=== PATIENT | female | born 1995 | race Caucasian/White ===

== ENCOUNTER 2023-09-24 12:50 | Outpatient (CLI) | payer OTHER, SELFPAY ==
--- NOTE | 2023-09-24 13:00 | CRLHL7_ITS ---
For Patients: As a result of the Cures Act, medical imaging exams and procedure reports are released immediately into your electronic medical record. You may view this report before your referring provider. If you have questions, please contact your health care provider. INDICATION: First trimester scan, establish dates. COMPARISON: None. TECHNIQUE: Real-time strong-scale imaging of the pelvis was performed. FINDINGS: Sonographic imaging demonstrates a single living intrauterine gestation. The embryo demonstrates a regular cardiac rate measuring 173 beats per minute. The embryo`s crown-rump length measurement of 2.9 cm corresponds to a gestational age of 9 weeks 5 days with a sonographic due date of 04/23/2024. There is a normal-appearing yolk sac. There are no gross abnormalities noted within the embryo at this early state of development. The gestational sac has a normal appearance. There is no evidence of a perigestational hemorrhage. The amount of fluid within the sac appears appropriate for gestational age. The cervix is closed. The myometrium appears normal. Left ovarian cyst is present measuring 2.6 x 2.1 x 2.0 cm. Right ovary normal. There are no suspicious fluid collections noted in the cul-de-sac. IMPRESSION: Normal first trimester OB ultrasound exam. Gestational age calculated at 9 weeks 5 days with a sonographic due date of 04/23/2023. Dictated by Rc Carlton MD @ 09/24/2023 1:52:45 PM (Electronically Signed)
== END 2023-09-24 12:51 | disposition home or self-care (01) ==
LOC: US 12:53
PROVIDERS: Visit Provider Registered Nurse
DX: Z34.90 Encounter for supervision of normal pregnancy, unspecified, unspecified trimester (principal)
CPT/HCPCS: 76817; 86592; 86703; 86704; 86706; 86762; 86787; 86803; 86850; 86900; 86901; 87086; 87340; 87491; 87591

== ENCOUNTER 2023-12-13 11:52 | Outpatient (CLI) | payer OTHER, SELFPAY ==
--- NOTE | 2023-12-13 12:00 | US_ITS ---
Final Report Patient: ANAIS WATERS Facility:?[facility] Patient ID:?[id number] Site Patient ID:?[id number]. Site :?[id number] Study:?US OB Pelvis anatomy-12/13/2023 1:04:27 PM Ordering Physician:POPPY Final Report: INDICATION: Evaluate anatomy. COMPARISON: 09/24/2023 TECHNIQUE: Real time strong scale imaging of the fetus was performed as well as color Doppler analysis of the umbilical vessels. FINDINGS: Sonographic imaging demonstrates a single living intrauterine gestation. Fetus demonstrates a regular cardiac rate of 147 beats per minute. Fetus has a earlene breech position. The placenta lies anteriorly without evidence of placenta previa. Placental edge is 3.9 cm from the internal cervical os. Amniotic fluid volume appears normal. Single deepest vertical pocket: 6.3 cm. The cervix is closed and measures 3.8 cm in length. The composite ultrasound gestational age is calculated at 21 weeks 2 days with an estimated sonographic due date of 04/22/2024. The estimated weight is 407 grams which lies at the 40th %. The following biometric measurements were obtained: Biparietal diameter: 5.0 cm/21 weeks 0 day 38% Head circumference: 18.8 cm/21 weeks 0 days 31st% Abdominal circumference: 16.8 cm/21 weeks 6 days 60th% Femur length: 3.4 cm/20 weeks 4 day 18th% The HC/AC ratio measures: 1.12 range (1.06-1.24) On anatomic survey, there is a normal appearance of the cerebral ventricles, cavum septi pellucidi, cisterna magna and cerebellum. The nose, lips, and facial profile appear normal. The cervical, thoracic and lumbar spine are well visualized and appear normal. There is a normal four-chamber heart view and the left and right ventricular outflow tracts appear normal. The diaphragm and stomach appear normal. The kidneys and bladder also appear normal. There is a normal three-vessel cord and cord insertion site. The four extremities appear normal. IMPRESSION: Normal OB ultrasound exam with concordance of clinical and sonographic dating. No intrinsic abnormalities noted on anatomic survey. Dictated by Rc Carlton MD @ 12/14/2023 7:22:47 AM (Electronic Signature)
== END 2023-12-13 11:53 | disposition home or self-care (01) ==
LOC: US 11:53
PROVIDERS: Visit Provider Obstetrics & Gynecology
DX: Z34.92 Encounter for supervision of normal pregnancy, unspecified, second trimester (principal); Z3A.21 21 weeks gestation of pregnancy
CPT/HCPCS: 76805

== ENCOUNTER 2024-02-01 14:50 | Outpatient (CLI) | payer OTHER, SELFPAY | END 2024-02-01 14:51 | disposition home or self-care (01) | LOC: NFLDREF 02-04 08:30 | PROVIDERS: Visit Provider Obstetrics & Gynecology | DX: Z34.93 Encounter for supervision of normal pregnancy, unspecified, third trimester (principal) | CPT/HCPCS: 86592 ==

== ENCOUNTER 2024-03-28 15:49 | Outpatient (CLI) | payer OTHER, SELFPAY ==
[2024-03-29 15:43] LABS: Strep B DNA Probe Negative (Negative)
[2024-03-30 13:46] LABS: Strep B Susceptibility Needed? No
== END 2024-03-28 15:50 | disposition home or self-care (01) ==
LOC: NFLDREF 15:50
PROVIDERS: Visit Provider Obstetrics & Gynecology
DX: Z34.83 Encounter for supervision of other normal pregnancy, third trimester (principal)
CPT/HCPCS: 87081; 87653

== ENCOUNTER 2024-04-27 07:56 | Outpatient (CLI) | payer OTHER, SELFPAY ==
--- NOTE | 2024-04-27 08:00 | CRLHL7_ITS ---
For Patients: As a result of the Century Cures Act, medical imaging exams and procedure reports are released immediately into your electronic medical record. You may view this report before your referring provider. If you have questions, please contact your health care provider. INDICATION: Post dates COMPARISON: 12/13/2023 TECHNIQUE: Real time strong scale imaging of the fetus. Without non-stress testing. FINDINGS: Sonographic imaging demonstrates a single living intrauterine gestation. Fetus demonstrates a regular cardiac rate of 131 beats per minute. Fetus has a vertex position. The amniotic fluid volume appears normal and there is a single deepest pocket measurement of 2.9 cm. The fetus was not active and demonstrated normal breathing movements. There was normal flexion and extension of the trunk and extremities. IMPRESSION: Biophysical profile 03/18. Absent gross body movements. Dictated by Rc Carlton MD @ 04/27/2024 9:51:47 AM (Electronically Signed)
== END 2024-04-27 07:57 | disposition home or self-care (01) ==
LOC: US 07:57
PROVIDERS: Visit Provider Obstetrics & Gynecology
DX: O48.0 Post-term pregnancy (principal)
CPT/HCPCS: 76819

== ENCOUNTER 2024-04-27 11:06 | Inpatient (IN) | payer OTHER, SELFPAY ==
[2024-04-27] VITALS (36 sets, daily range): BP systolic 101–140; BP diastolic 53–83; PULSE 93–155; RESP 16; TEMP 36.6–37.4; O2SAT 98–100; BMI 30.1
--- NOTE | 2024-04-27 12:06 | W.PM.LDBA ---
Subjective History of Present Illness Time Seen by Provider: 12:06 Narrative: Minerva is being admitted to Labor and Delivery for of labor due to biophysical profile of 6/8, 2 off for lack of movement. She is a 28 year old at 40 and 5/7 weeks gestation. Her full history and physical was dictated by Dr. Manriquez on 04/04/2024. Please see this for details. Biophysical profile was done for postdates testing. Specific Issues/Plans Spouse: Augusto. Baby: Girl! H&P done 04/04/[address] Manriquez. [id number] completed 10/12/2023 (Results given to patient) It's a girl! 1. Varicella non immune. Rec. PP vaccine. Flu: Recommended. Declines. Covid: Completed, not boosted. Recommended. Declines. Tdap: 02/27 OB - Problem Based A/P Additional Plan (1) Encounter for induction of labor: Status: Acute Plan 1. Pitocin per induction protocol. 2. Patient is planning an epidural for labor analgesia. 3. GBS: Negative. 4. Blood type: B positive OB Exam Physical Exam Vital signs: Pulse BP 117 H 125/83 04/27/24 11:26 04/27/24 11:26 Narrative: GENERAL APPEARANCE: Pleasant, , well-groomed woman in no acute distress. VITAL SIGNS: as noted in nursing notes HEAD: Normocephalic, atraumatic. THYROID: no masses, nodularity, tenderness or enlargement. LUNGS: Clear to auscultation bilaterally without wheezes, rales or rhonchi. HEART: Regular rate and rhythm with normal S1 and S2. No gallop, rub or murmur. ABDOMEN: Gravid. Soft, nontender, nondistended, with normal bowels sounds throughout. EFM: Baseline: 130s, moderate variability. Accelerations: Present. Decelerations: Absent. Reactive, category 1 TOCO: 1-2 contractions/30 minutes. PRESENTATION: Vertex by Scott's maneuvers. SVE: 3 cm/ 75 %/ -1/soft/mid. Gil score: 8 EXTREMITIES: No cyanosis, clubbing, or edema. No varicosities. NEUROLOGIC: Normal gait and balance. Normal deep tendon reflexes at bilateral patella 2+/2, equal without clonus. PSYCHIATRIC: alert and oriented x3. Normal speech pattern, eye contact and affect. SKIN: Warm, dry, and well perfused. Good turgor. No lesions, nodules or rashes.
[2024-04-27 13:18] LABS: Basophils Percent Auto 0.2 % (0.0-3.0); Eosinophils Percent Auto 0.9 % (0.0-7.0); Hematocrit 34.8 % (33.0-51.0); Hemoglobin* 12.5 gm/dL (12.0-16.0); Immature Granulocytes Pct Auto 0.7 %; Lymphocytes Percent Auto 13.4 % (20-44); Mean Corpuscular HGB Conc 36 gm/dL (32-36); Mean Corpuscular Hemoglobin 32 pg (26-34); Mean Corpuscular Volume 90 fL (80-100); Monocytes Percent Auto 5.6 % (0.0-11.0); Neutrophils Percent Auto 79.2 % (42.0-72.0); Platelet Count* 140 K/uL (140-440); RDW Coefficient of Variation % 11.9 % (11.5-15.5); Red Blood Count 3.88 m/uL (4.00-5.20); White Blood Count* 14.83 K/uL (4.50-11.00)
[2024-04-27] MEDS: OXYTOCIN 30 unit/500 ML in NS 30 UNIT/500 ML BAG IVPB (13:29)
[2024-04-27] MEDS: LACTATED RINGERS 1000 ML 1,000 ML 125 ML IV (13:31)
[2024-04-27 13:37] LABS: Slide Review Reflex No
--- NOTE | 2024-04-27 16:02 | P.OBPN_ITS ---
Subjective Date Seen: 04/27/24 Narrative: Subjective: The patient is feeling contractions but feels they are manageable. Pitocin: 6 milliunits/minute. Verbal consent obtained for artificial rupture of membranes Vital signs: Per electronic medical record. EFM: Baseline 130s, positive accelerations, negative decelerations, moderate variability, reactive. Category 1. [place]: Contractions every 2 minutes. SVE: 4 cm/75 %/0. AROM: Clear fluid. Assessment: 28-year-old 1 para 0 at 40 weeks 5 days gestation undergoing induction of labor for no movement identified in a biophysical profile earlier today. Plan: 1. Continue Pitocin for labor induction protocol. 2. Considering epidural for labor analgesia. 3. Expect vaginal delivery. Objective Vital Signs: Last Vital Signs Temp 98.4 F 04/27/24 11:26 Pulse 93 04/27/24 14:25 Resp 16 04/27/24 11:26 BP 125/79 04/27/24 14:25
[2024-04-27] MEDS: LIDOCAINE 2% (PF) 5 ML VIAL EPIDURAL (17:57)
[2024-04-27] MEDS: ROPIVACAINE 0.2% 100 ml 100 ML 12 MG EPIDURAL (17:58)
--- NOTE | 2024-04-27 18:03 | PM.ANBPRC ---
[facility] Social History What is your current living situation?: I presently have a place to live Problems where you live: declined to answer In the past 12 months, utilities in danger of being shut off: no In past 12 months, lack of transportation kept you from medical appts, meetings, work, or getting things needed for daily living: no In the past 12 mos, have been you worried that your food would run out before you had money to buy more?: never true In the past 12 mos, the food you bought just didn't last and you didn't have money to buy more?: never true Smoking Status: Never smoker How often does anyone, including family, friends and others, physically hurt you: never How often does anyone, including family, friends and others, insult or talk down to you: never How often does anyone, including family, friends and others, threaten you with harm: never How often does anyone, including family, friends and others, scream or curse at you: never Little interest or pleasure in doing things: not at all Feeling down, depressed, or hopeless: not at all Meds Home Medications and Allergies Home Medications ?Medication ?Instructions ?Recorded ?Confirmed ?Type 103-folic acid 400 1 tab PO DAILY 09/24/23 04/27/24 History mcg-omeg3 32.5 mg-dha-fish oil chew tablet ( with DHA and Folic Acid) cetirizine 10 mg capsule (Zyrtec) 10 mg PO QDAY PRN 02/01/24 04/27/24 History Allergies Allergy/AdvReac Type Severity Reaction Status Date / Time No Known Drug Allergies Allergy Verified 04/27/24 11:55 Results Labs Labs: Laboratory Results - last 24 hr 04/27/24 13:05 WBC 14.83 H RBC 3.88 L Hgb 12.5 Hct 34.8 MCV 90 MCH 32 MCHC 36 RDW Coeff of Mackenzie 11.9 Plt Count 140 Neut % (Auto) 79.2 H Lymph % (Auto) 13.4 L [place] % (Auto) 5.6 Eos % (Auto) 0.9 Baso % (Auto) 0.2 Neut # (Auto) 11.70 H Lymph # (Auto) 2.00 [place] # (Auto) 0.80 Eos # (Auto) 0.10 Baso # (Auto) 0.00 Abs Immat Gran (auto) 0.10 Imm/Tot Granulo (auto) 0.7 Blood Type B Positive Antibody Screen NEGATIVE Vital Signs Vital Signs: Last Vital Signs Temp 98.4 F 04/27/24 11:26 Pulse 98 04/27/24 18:01 Resp 16 04/27/24 11:26 BP 121/62 04/27/24 18:01 Pulse Ox 99 04/27/24 17:57 Weight: 79.651 kg Height: 162.56 cm Anesthesia Procedures Epidural Insertion Patient Location: OB Start Time: 17:30 Stop Time: 18:15 Start Date: 04/27/24 Stop Date: 04/27/24 Reason for Block: primary anesthetic Patient Position: sitting Performed By: Garry Blair Preanesthetic Checklist: IV checked, risks and benefits discussed, surgical consent, monitors and equipment checked, pre-op evaluation, timeout performed and anesthesia consent Prep: chlorhexidine gluconate Monitoring: blood pressure monitoring, compliance monitor, continuous pulse oximetry and heart rate Approach: midline Vertebral Space: lumbar (1-5) Needle Type: Tuohy needle Injection Technique: continuous catheter (catheter) Needle gauge: 17 Needle Length (cm): 10 cm Needle Insertion Depth (cm): 4 Catheter Gauge: 19 Catheter Type: multi-orifice Catheter at skin depth (cm): 9 Test Dose Result: negative and lidocaine 1.5% with epinephrine 1 to 200,000
[2024-04-27] MEDS: LACTATED RINGERS 1000 ML 1,000 ML 999 ML IV (18:25)
--- NOTE | 2024-04-27 18:54 | PM.OBPNL ---
Subjective Time Seen by Provider: 18:45 Date Seen: 04/27/24 Narrative: Subjective: Patient is comfortable w/ epidural. Pitocin: 6 milliunits/minute. Vital signs: Per electronic medical record. EFM: Baseline 130s, positive accelerations, negative decelerations, moderate variability, reactive. Category 1. [place]: Contractions every 2 minutes. SVE: 7 cm/100 %/0. Assessment: 28-year-old 1 para 0 at 40 weeks 5 days gestation undergoing induction of labor Plan: 1. Continue Pitocin per labor induction protocol. 2. Expect vaginal delivery. Objective Vital Signs: Last Vital Signs Temp 98.4 F 04/27/24 11:26 Pulse 103 H 04/27/24 18:43 Resp 16 04/27/24 11:26 BP 136/70 04/27/24 18:43 Pulse Ox 99 04/27/24 17:57
[2024-04-28] VITALS (15 sets, daily range): BP systolic 98–131; BP diastolic 56–79; PULSE 86–129; RESP 16; TEMP 36.8–37.4; O2SAT 99
[2024-04-28] MEDS: OXYTOCIN 30 unit/500 ML in NS 30 UNIT/500 ML BAG 309 UNIT IVPB
[2024-04-28] MEDS: LIDOCAINE 1 % PF 30 ML INJECTION (00:20)
--- NOTE | 2024-04-28 00:41 | W.PM.VAGDEL1 ---
Procedure Delivery date: 04/27/24 Procedure Done: Global Procedure Details: Minerva is a 28 year-old G 1 P 0 now 1 admitted on 04/27/2024 at 11:00 a.m. at 40 Weeks, 5 Days gestation for induction of labor. AROM occurred at 4:00 p.m. on 01/27/2024 with clear fluid. Labor Analgesia: Epidural Pitocin: Yes Labor onset: 04/27/2024 at 6:45 p.m.. Complete: 04/27/2024 at 8:53 p.m.. Pushin04/27/2024 at 10:30 p.m.. heart tones during second stage were: There is an increase in the baseline from 130-140 up to 190s during 2nd stage with variable decelerations to the 150s contractions and minimal variability. At 11:59 p.m. a viable female delivered in vertex direct OA presentation over second-degree perineal laceration via normal spontaneous vaginal delivery. The infant was placed on maternal abdomen. Cord was clamped and cut after a greater than 60 second delay: Cord clamped and cut when it stopped pulsing per the patient's request. Nose and mouth were bulb suctioned. Infant weight pending. 8 at 1 minute and 9 at 5 minutes. Shoulder dystocia: No. Nuchal cord: No Placenta delivered spontaneously and complete at 1:17 a.m. with a 3 vessel cord. Laceration(s): Second-degree perineal. Repaired using 3-0 Vicryl suture in the usual manner. Blood loss: 400 mL. Blood loss measurement type: Quantitative Sponge and needles counts are correct. Specimen: None Mother and infant were stable after delivery. 's name: Lucy The patient is planning on breast feeding. Intrapartal Events: Labor Induction Delivery monitor: external FHT and external uterine Route of delivery: Laceration description: Perineal - 2nd Degree Delivery repair: Vicryl Estimated blood loss (mL): 400 Anesthesia type: Epidural Disposition: floor
[2024-04-28] MEDS: ACETAMINOPHEN 500 MG TABLET 1000 MG PO ×3 (00:56→17:24)
[2024-04-28] MEDS: BENZOCAINE/MENTHOL SPRAY 85 GM AEROSOL 1 APPLIC TOPICAL (03:00)
[2024-04-28] MEDS: IBUPROFEN 600 MG TABLET PO ×2 (03:21→13:04)
--- NOTE | 2024-04-28 08:10 | P.OBPN_ITS ---
OB - PN:Subj Subjective Date Seen: 04/28/24 Patient comments OB post-: no complaints, pain well controlled, tolerating diet and flatus present [place] status: and doing well [place] feeding status: exclusively Narrative: Minerva is a 28 y.o. who was admitted to [facility] for induction of labor.? She had an uncomplicated NVD.? ?? The patient feels well.? The pain is well controlled with current medications.? She has no new complaints.? She is breast feeding and reports things are going well.? the patient has done well.? Vitals have been stable.? She has remained afebrile.? Has a good appetite, is tolerating a general diet.? She is voiding without difficulty.? She is passing gas and has had a bowel movement.? She is ambulating and denies any dizziness.? Has Small amount of rubra lochia.? OB - PN: Obj Exam Physical Exam: Vital signs: Temp Pulse Resp BP Pulse Ox 99.4 F 94 16 113/78 99 04/28/24 05:03 04/28/24 05:03 04/28/24 05:03 04/28/24 05:03 04/27/24 23:00 Narrative: GENERAL APPEARANCE:? normal affect, alert, no distress? MOOD:? appropriate? HEENT: normocephalic, neck supple, full ROM? CHEST:? Symmetrical chest wall movement.? Normal respiratory effort.? Clear to auscultation ? HEART:? regular rate and rhythm? ABDOMEN:? soft, non-tender. Uterine fundus is firm, at Umbilicus, Midline and is appropriate for the stage of recovery.? Bowel sounds present.? PERINEUM:? mild edema of the perineum, there is a 2nd degree laceration that is healing well.? EXTREMITIES:? normal and no edema? OB - PN: Obj Data Labs Labs: Laboratory Results - last 24 hr 04/27/24 13:05 WBC 14.83 H RBC 3.88 L Hgb 12.5 Hct 34.8 MCV 90 MCH 32 MCHC 36 RDW Coeff of Mackenzie 11.9 Plt Count 140 Neut % (Auto) 79.2 H Lymph % (Auto) 13.4 L [place] % (Auto) 5.6 Eos % (Auto) 0.9 Baso % (Auto) 0.2 Neut # (Auto) 11.70 H Lymph # (Auto) 2.00 [place] # (Auto) 0.80 Eos # (Auto) 0.10 Baso # (Auto) 0.00 Abs Immat Gran (auto) 0.10 Imm/Tot Granulo (auto) 0.7 Blood Type B Positive Antibody Screen NEGATIVE OB - PN: A/P Delivery Assessment and Plan (1) (normal spontaneous vaginal delivery): Problem details: Girl born at 11:59pm on 04/27/2024, Lucy, apgars 8/9 Status: Acute (2) care and examination immediately after delivery: Status: Acute (3) Lactating mother: Status: Acute Plan day: 1 Plan: routine care Comments: G 1 P 1 status post uncomplicated NVD??? 1.? Continue route PP cares? 2.? .? May see if desired? 3.? Anticipate discharge home tomorrow?
--- NOTE | 2024-04-28 13:25 | PM.ANPOST ---
Post Anesthesia Note Post Anesthesia Note Patient seen: Inpatient Respiratory Status: adequate Cardiovascular Status: adequate Mental Status: baseline Pain: adequate Temp: baseline Anesthetic awareness: N/A Complications: none Follow care: none
[2024-04-28 15:10] LABS: Rapid Plasma Reagin (RPR) Non Reactive (Non Reactive)
[2024-04-29 00:01] VITALS: BP 112/75; PULSE 93; RESP 16; TEMP 36.7; O2SAT 99
[2024-04-29 07:31] LABS: Hemoglobin* 10.2 gm/dL (12.0-16.0)
[2024-04-29 09:11] VITALS: BP 110/74; PULSE 96; RESP 20; TEMP 36.7; O2SAT 97
[2024-04-29] MEDS: DOCUSATE SODIUM 100 MG CAPSULE PO (09:13)
[2024-04-29] MEDS: IBUPROFEN 600 MG TABLET PO (09:13)
--- NOTE | 2024-04-29 09:50 | P.DS_ITS ---
DS: Providers Provider Time Seen by Provider: 08:45 Date Seen: 04/29/24 Date of admission: 04/27/24 11:06 Primary care physician: Not a Local Provider Admitting Clinician: Bushra Jeff MD Attending Physician on discharge: Bushra Jeff MD DS: Diagnosis Discharge Diagnosis (1) (normal spontaneous vaginal delivery): Status: Acute Problem details: Girl born at 11:59pm on 04/27/2024, Lucy, apgars 8/9 Exam Narrative: Exam Narrative: GENERAL APPEARANCE: Pleasant, , well-groomed woman in no acute distress. VITAL SIGNS: as noted in nursing notes LUNGS: Clear to auscultation bilaterally without wheezes, rales or rhonchi. HEART: Regular rate and rhythm with normal S1 and S2. No gallop, rub or murmur. ABDOMEN: Gravid. Soft, nontender, nondistended, with normal bowels sounds throughout. FUNDUS: Firm in the midline, 1 cm below the umbilicus EXTREMITIES: No cyanosis, clubbing, or edema. No varicosities. NEUROLOGIC: Normal gait and balance. Normal deep tendon reflexes at bilateral patella 2+/2, equal without clonus. PSYCHIATRIC: alert and oriented x3. Normal speech pattern, eye contact and affect. SKIN: Warm, dry, and well perfused. Good turgor. No lesions, nodules or rashes. Const: Vital Signs, click to edit/add: Vital Signs - 24 hr 04/28/24 13:07 04/28/24 17:11 04/28/24 22:26 Temperature 98.7 F 98.2 F Pulse Rate [Blood Pressure Cuff] 103 H 104 H 86 Respiratory Rate 16 16 16 Blood Pressure [Ri ght Arm] 101/69 122/79 98/65 Pulse Oximetry 99 99 Oxygen Delivery Me thod Room Air Room Air 04/29/24 00:01 04/29/24 09:11 Temperature 98.1 F 98.1 F Pulse Rate [Blood Pressure Cuff] 93 96 Respiratory Rate 16 20 Blood Pressure [Ri ght Arm] 112/75 110/74 Pulse Oximetry 99 97 Oxygen Delivery Me thod Room Air Room Air OB - DS: Summary Hospital Course Hospital Course: The patient is a 28 year old G 1 P 0 at 40 and 5/7 weeks gestation that was admitted to the Center on 04/27/24 for induction of labor for no movement on biophysical profile. She had an uncomplicated vaginal delivery. She delivered a viable female . She is breast feeding. the patient has done well. Peripartum Data Infant delivery method: Vaginal Laceration description: Perineal - 2nd Degree complications: none Infant Gender: Female Status at Discharge Functional status at discharge: independent ambulation Overall status at discharge: patient is back to baseline Time Spent with Patient Time attestation: Total time spent providing and/or coordinating discharge services: Discharge Plan Discharge Disposition: Home, Self-Care Date of Admission: 04/27/24 11:06 Attending Provider on Discharge: Bushra Jeff Primary Care Provider: Provider,Not a Local Condition: Stable Anticipated Discharge Date/Time: 04/29/24 13:00 Discharge Medications: New docusate sodium 100 mg Capsule 100 mg PO BID PRNQty: 100 0RF ibuprofen 600 mg Tablet 600 mg PO Q6H PRNQty: 30 0RF Continued with DHA-Folic Acid 400-32.5 mcg-mg tablet,chewable 1 tab PO DAILY Zyrtec 10 mg capsule 10 mg PO QDAY PRN Discharge Orders: Discharge Order (Routine); Ordered 04/29/24 Ordered By: Bushra Jeff Patient Education: Perineal Tear with Delivery (DC), Vaginal Delivery (DC) Additional Instructions: ACTIVITY RESTRICTIONS: * Nothing vaginally for 6 weeks: no tampons/intercourse * Off of work/school for a minimum of 6 weeks NO RESTRICTIONS for: * Walking * Going up/down stairs * Showering * Exercise * Lifting Symptoms to report to doctor: -Bleeding that saturates more than one pad per hour ?-Passing clots larger than the size of a golf ball ?-Pain not relieved by prescribed medication ?-Fever above 100.4 degrees Fahrenheit ?-A foul vaginal odor ?-Difficulty in emotions, mood and functions ?-Thoughts of hurting yourself and/or ?-Painful, reddened area in your breast ?-Any drainage, redness or tenderness in your IV/epidural site ?-Severe headache that doesn't improve after taking medications ?-Changes in vision, including temporary loss of vision, blurred vision, and/or light sensitivity ?-Upper abdominal pain (usually under ribs on the right side) ?-Decrease in urination or painful, frequent urinating ?-Chest pain ?-Shortness of breath ?-Tenderness or pain with redness and/swelling in the calf(s) of your leg Follow-up: 1. [facility] in 2 weeks for an optional visit: Discuss contraceptive options, screen for anxiety and depression in answer any questions that you have. 2. A 6 week visit for an annual physical exam. consultation services are available to all mothers and babies for the first year after delivery.? To make an appointment, please call [phone]. Follow Up Appointments: Provider,Not a Local [Primary Care Provider] - [facility] [Provider Group] Bushra Jeff MD [Staff Physician] - Forms: MyHealth Info Instructions
== END 2024-04-29 12:45 | disposition home or self-care (01) | DRG 807 ==
PROVIDERS: Admitting Provider Obstetrics & Gynecology; Visit Provider Obstetrics & Gynecology
DX: O36.8130 Decreased fetal movements, third trimester, not applicable or unspecified (principal); Z37.0 Single live birth; O48.0 Post-term pregnancy; O70.1 Second degree perineal laceration during delivery; Z3A.40 40 weeks gestation of pregnancy
CPT/HCPCS: 01967; 36415; 85018; 85025; 86592; 86850; 86900; 86901; A9270; J2001; J2371; J2795; J7120

== ENCOUNTER 2024-05-19 11:06 | Outpatient (CLI) | payer OTHER, SELFPAY ==
--- NOTE | 2024-05-19 12:27 | W.PM.LAC.MC ---
Consult Note - Mom Date of Visit Date of visit: 05/19/24 life consultant: Bushra Mandujano Visit Code: Visit Patient's Information Phone number: [phone] : 1 Para: 1 Allergies No Known Drug Allergies Allergy (Verified 05/12/24 13:28) Mother's Medical History: Medical History (Updated 05/02/24 @ 00:01 by Background Daivan) (normal spontaneous vaginal delivery) (04/27/24) ?O80 - Encounter for full-term uncomplicated delivery (ICD-10) Work Plans: return to work in August Delivery Information Delivery type: Vaginal Weeks Gestation: 40+5 Gestational Age: AGA Weight: 4.02 kg Discharge Weight: 3.926 kg Baby's Information Medications: Vitamin D drops Baby's Age at Visit: 22 days Baby's Provider or Clinic: [facility] Jaundice: No Reason for Consult Reason for Consult: Assess feeding, mom with presumably ample milk supply, baby with some spitting up Past Experience Past Experience: No Current Frequency of Day Feedings: every 2-3 hours, waking baby for feedings at 3 hr bridget Frequency of Night Feedings: 4 hours at night Both Breasts: Yes (sometimes, offers both, not always take ) Suck: strong Latch: wide, deep Length of Time: average 8-15 minutes Goals: 1 year Pumping Pumping: No Supplementing EMB Supplement: No Formula Supplement: No Baby Elimination Number of Wet Diapers a Day: 6+ Number of BM a Day: 3-4, yellow/seedy Breast/Nipple Condition Engorgement: No Maternal Nipple Condition - Left: Common Nipple Maternal Nipple Condition - Right: Common Nipple Sore Nipples: No Onsite Pre-Feed weight: 4.624 kg Post-Feed weight: 4.7 kg Milk Transferred (mL): 76 Pre-Nursing Left Nipple: Within Normal Limits Pre-Nursing Right Nipple: Within Normal Limits Post-Nursing Left Nipple: Within Normal Limits Post-Nursing Right Nipple: Within Normal Limits Assessments/Interventions Assessments/Interventions: Recommend continuing current feeding plan. Consider allowing baby to wake self for feedings and see if she is more easily latched vs waking her for feedings given excellent weight gain. If longer stretches in the daytime vs nighttime, go back to every 3ish hours during the day to promote good sleep for all. Burping measures also discussed as well as looking for other comfort measures in her fussy time at night vs feeding as they may not be what she wants and adding to her fussy times (and some babies just have fussy times, more in the evening than daytime). Answered questions about pacifier use and pumping/adding bottles into routine in 1-2 weeks. Time spent reviewing records and face to face time with mom and baby: 75 minutes Meds Home Medications and Allergies Home Medications ?Medication ?Instructions ?Recorded ?Confirmed ?Type 103-folic acid 400 1 tab PO DAILY 09/24/23 05/12/24 History mcg-omeg3 32.5 mg-dha-fish oil chew tablet ( with DHA and Folic Acid) cetirizine 10 mg capsule (Zyrtec) 10 mg PO QDAY PRN 02/01/24 05/12/24 History Allergies Allergy/AdvReac Type Severity Reaction Status Date / Time No Known Drug Allergies Allergy Verified 05/12/24 13:28
== END 2024-05-19 11:07 | disposition home or self-care (01) ==
PROVIDERS: Visit Provider Obstetrics & Gynecology
DX: Z39.1 Encounter for care and examination of lactating mother (principal)
CPT/HCPCS: G0463